=== PATIENT | male | born 1970 | race Caucasian/White ===

== ENCOUNTER 2017-09-09 18:24 | Emergency (ER) | payer OTHER ==
[2017-09-09] MEDS ORDERED: Adacel (T-DAP) 0.5 ML VIAL ONE (18:35)
[2017-09-09] MEDS ORDERED: Lidocaine 1% 20 ML MDV ONE (18:38)
[2017-09-09] MEDS ORDERED: Bacitracin Zinc 1 Packet ONE (19:00)
== END 2017-09-09 19:12 | disposition home or self-care (01) ==
LOC: NAV ERS 18:24
DX: S61.412A Laceration without foreign body of left hand, initial encounter (principal); Z23 Encounter for immunization; W45.8XXA Other foreign body or object entering through skin, initial encounter
CPT/HCPCS: 12002; 90471; 90715; J2001